=== PATIENT | male | born 1970 | race Asian ===

== ENCOUNTER 2023-03-27 14:30 | Outpatient (RCR) | payer MEDICAID, SELFPAY | END 2023-04-27 16:26 | disposition home or self-care (01) | PROVIDERS: PCP Family Medicine; Visit Provider Student in an Organized Health Care Education/Training Program | DX: S46.912A Strain of unspecified muscle, fascia and tendon at shoulder and upper arm level, left arm, initial encounter (principal); Z51.89 Encounter for other specified aftercare | CPT/HCPCS: 97110; 97162 ==

== ENCOUNTER 2023-10-24 10:17 | Emergency (ER) | payer OTHER, SELFPAY ==
[2023-10-24 10:28] VITALS: BP 169/77; PULSE 90; RESP 16; TEMP 36.6; O2SAT 96
--- NOTE | 2023-10-24 11:00 | XR_ITS ---
Patient: PRESTON MALONE Facility:?[facility] Patient ID:?[id number] Site Patient ID:?[id number]. Site :?1970 Study:?XRay-Chest 2 VIEW-10/24/2023 11:39:09 AM Ordering Physician:HONEY Final Report: Indication: Left chest pain Technique: Chest 2 views Comparison: None Findings/Impression: Cardiovascular and mediastinum: Heart size and vasculature are normal in caliber and appearance. Mediastinum is within normal limits. Lungs and pleural spaces: Lungs are clear. No sign of infiltrate or mass. No sign of pleural effusion. No pneumothorax. Bones and soft tissues: No significant findings. Dictated by Jeff Mittal MD @ 10/24/2023 12:16:11 PM Signed by:?Jeff Mittal MD @10/24/2023 12:16:11 PM (Electronic Signature)
--- NOTE | 2023-10-24 11:00 | CT_ITS ---
Patient: PRESTON MALONE Facility:?[facility] Patient ID:?[id number] Site Patient ID:?[id number]. Site :?1970 Study:?CT-Head WITHOUT-10/24/2023 11:37:44 AM Ordering Physician:HONEY Final Report: Indication: Headache. Technique: Noncontrast CT of the head with multiplanar reconstruction utilizing bone and soft tissue algorithms. Comparison: None available. Findings: No acute intracranial hemorrhage. The costa-white matter interface is preserved. The ventricles are normal in size. The calvarium is intact. Collapsed appearance of the left globe with a metallic foreign body within the intraconal space. The paranasal sinuses and mastoid air cells are predominantly clear. Impression: 1. No acute intracranial abnormality. 2. Collapsed appearance of the left globe with metallic foreign body in the intraconal space, potentially reflecting sequela of prior injury. Please note that all CT scans at this facility use dose modulation, iterative reconstruction, and/or weight-based dosing when appropriate to reduce radiation dose to as low as reasonably achievable. Dictated by Sim Laurent MD @ 10/24/2023 11:45:10 AM Signed by:?Sim Laurent MD @10/24/2023 11:45:10 AM (Electronic Signature)
[2023-10-24 11:24] LABS: Lactate* 1.3 mmol/L (0.5-1.9)
[2023-10-24 11:26] LABS: Basophils Absolute Auto 0.03 K/uL (0.00-0.30); Basophils Percent Auto 0.3 % (0.0-3.0); Eosinophils Absolute Auto 0.23 K/uL (0.00-0.50); Eosinophils Percent Auto 2.4 % (0.0-7.0); Hematocrit 48.5 % (37.0-53.0); Hemoglobin* 16.8 gm/dL (13.5-17.5); Immature Granulocytes Abs Auto 0.02 K/uL (0.00-0.30); Immature Granulocytes Pct Auto 0.2 %; Lymphocytes Absolute Auto 3.18 K/uL (0.90-2.90); Lymphocytes Percent Auto 32.7 % (20-44); Mean Corpuscular HGB Conc 35 gm/dL (32-36); Mean Corpuscular Hemoglobin 30 pg (26-34); Mean Corpuscular Volume 86 fL (80-100); Monocytes Percent Auto 7.9 % (0.0-11.0); Neutrophils Percent Auto 56.5 % (42.0-72.0); Platelet Count* 281 K/uL (140-440); RDW Coefficient of Variation % 12.5 % (11.5-15.5); Red Blood Count 5.65 m/uL (4.30-5.90); White Blood Count* 9.73 K/uL (4.50-11.00)
[2023-10-24 11:27] LABS: Slide Review Reflex No
[2023-10-24] MEDS: KETOROLAC 15 MG/ML inj IVP (11:32)
[2023-10-24] MEDS: METOCLOPRAMIDE HCL 5 MG/ML INJ 10 MG IVP (11:34)
[2023-10-24] MEDS: diphenhydrAMINE 50 MG/ML inj 12.5 MG IVP (11:35)
[2023-10-24] MEDS: 0.9 % SODIUM CHLORIDE 1000 ml 1,000 ML IV (11:39)
[2023-10-24 11:58] LABS: Chloride* 105 mmol/L (96-114); Potassium* 4.4 mmol/L (3.6-5.1); Sodium* 136 mmol/L (135-149); Troponin I* 0.03 ng/mL (0.01-0.04)
[2023-10-24 12:01] LABS: Anion Gap 6 mEq/L (7-15); Blood Urea Nitrogen* 12 mg/dL (7-30); Carbon Dioxide* 25 mmol/L (20-32); Creatinine* 0.7 mg/dL (0.5-1.5); Estimated Glomerular Filt Rate 110 ml/min; Glucose* 141 mg/dL (60-115)
[2023-10-24 12:02] LABS: Calcium* 9.4 mg/dL (8.4-10.6)
[2023-10-24 12:05] LABS: D Dimer Quantitative* 0.22 ug/ml (0.00-0.50)
--- NOTE | 2023-10-24 12:14 | ED_ITS ---
HPI - General Adult General Date Seen: 10/24/23 Chief complaint: Headache/Migraine Stated complaint: headache, left side abdominal pain Time Seen by Provider: 10/24/23 10:59 History of Present Illness HPI narrative: History is limited by language barrier and is interpreted using and Citizen Of [place]- [place] iPad based radio program director. The patient's son is bilingual and is at the bedside but does not interpret 53-year-old woman with a history of hypertension and dyslipidemia the [place] (sounds like primary care and [facility]. On blood pressure and cholesterol meds but does not know the names of the meds). He presents to the ER today for evaluation of left lateral chest/rib pain and headache. Both of these symptoms began yesterday morning and were present when he woke up. Sounds like the patient was normal 2 days ago. No recent injury. No recent fall. No recent respiratory illness or cough. No fever. When he woke up yesterday he was having some pain in this left lateral ribs. Does hurt to breathe. It does not radiate. No pain down to the flank or abdomen. No rash. It has been present continuously all day yesterday and is still present today. He says yesterday the pain was not as bad but he was only slightly dizzy. Today the pain is worse but he slightly less dizzy. He also notes a headache that is more on the left side than on the right. It has also been present continuously since yesterday. No fever. No stiff neck. The pain does not radiate down his neck. No other symptoms. No blurry vision. No nausea or vomiting. He did have 1 brief coughing spell this morning. No abdominal pain or back pain. No fever. He does note that he has been waking up with night sweats in the morning for quite some time. He also wakes up with dry mouth in the morning. In records through [email or web address] care link from his primary care provider at [facility] Past medical history include Hypertension Mixed hyperlipidemia GERD Colon polyp H pylori infection Pre diabetes Tobacco use Traumatic enucleation of left eye Current medications: Acetaminophen Atorvastatin 40 mg daily Famotidine 40 mg daily Losartan 100 mg daily Metoprolol XL 25 mg daily Omeprazole 40 mg daily Gabapentin 100 mg t.i.d. NV Naproxen p.r.n. MiraLax purulent He has a phone call to the [facility] phone triage line this morning. Looks like he called them because of his headache and dizziness Related Data Allergies Allergy/AdvReac Type Severity Reaction Status Date / Time No Known Drug Allergies Allergy Verified 10/24/23 10:40 PFSH PFS Social History Smoking Status: Never smoker How often do you have a drink containing alcohol: never AUDIT-C Alcohol total score: 0 Non-prescribed substance use: denies use service: No Exam Const: Vital Signs, click to edit/add: Vital Signs - 24 hr 10/24/23 10:28 10/24/23 12:30 Temperature 97.9 F Pulse Rate [Pulse Oximeter] 90 75 Respiratory Rate 16 Blood Pressure [Ri ght Upper Arm] 169/77 H 144/80 H Pulse Oximetry 96 99 Oxygen Delivery Me thod Room Air Room Air Course Vital Signs Vital signs: Initial Vital Signs Temperature 97.9 F 10/24/23 10:28 Temperature Source Temporal Artery Scan 10/24/23 10:28 Pulse Rate 90 10/24/23 10:28 Respiratory Rate 16 10/24/23 10:28 Blood Pressure 169/77 H 10/24/23 10:28 Blood Pressure Mean 107 H 10/24/23 10:28 Blood Pressure Position Sitting 10/24/23 10:28 Pulse Oximetry 96 10/24/23 10:28 Oxygen Delivery Method Room Air 10/24/23 10:28 Vital Signs Temperature 97.9 F 10/24/23 10:28 Pulse Rate 90 10/24/23 10:28 Respiratory Rate 16 10/24/23 10:28 Blood Pressure 169/77 H 10/24/23 10:28 Pulse Oximetry 96 10/24/23 10:28 Oxygen Delivery Method Room Air 10/24/23 10:28 Temperature 97.9 F 10/24/23 10:28 Pulse Rate 75 10/24/23 12:30 Respiratory Rate 16 10/24/23 10:28 Blood Pressure 144/80 H 10/24/23 12:30 Pulse Oximetry 99 10/24/23 12:30 Oxygen Delivery Method Room Air 10/24/23 12:30 Medications Administered Medications: Discontinued Medications Generic Name Dose Route Start Last Admin Trade Name Freq PRN Reason Stop Dose Admin Diphenhydramine HCl 12.5 mg 10/24/23 11:01 10/24/23 11:35 Diphenhydramine 50 Mg/Ml Inj IVP 10/24/23 11:02 12.5 mg ONCE ONE Administration Sodium Chloride 1,000 mls @ 1,000 mls/hr 10/24/23 11:01 10/24/23 12:45 0.9 % Sodium Chloride 1000 Ml IV 10/24/23 12:00 Infused .Q1H HEBERT Infusion Ketorolac Tromethamine 15 mg 10/24/23 11:01 10/24/23 11:32 Ketorolac 15 Mg/Ml Inj IVP 10/24/23 11:02 15 mg ONCE ONE Administration Metoclopramide HCl 10 mg 10/24/23 11:01 10/24/23 11:34 Metoclopramide Hcl 5 Mg/Ml Inj IVP 10/24/23 11:02 10 mg ONCE ONE Administration Medical Decision Making MDM Narrative Medical decision making narrative: 53-year-old [place] speaking gentleman presenting to the ER today for evaluation of left lateral rib pain (chest pain) as well as headache, as well as dizziness. Symptoms ongoing since yesterday morning when he woke up In terms of the chest painDifferential was broad. No evidence of palpitations, syncope or other cardiac dysrhythmia. EKG showing sinus rhythm. No ectopy. We considered possible ACS, however workup with EKG and troponin is negative. Given time since onset of symptoms, I do not think the patient needs to be admitted for further sets of enzymes. HEART score is 3-low risk EKG shows no evidence for pericarditis. Clinical presentation not suggestive of myocarditis. Chest x-ray shows no evidence for pneumonia, pneumothorax, pulmonary edema, pleural effusion, rib fracture, cardiomegaly. Mediastinum is normal on the x-ray. The patient has no ripping or tearing pain through to the back and has symmetric pulses on exam, no other acute neuro findings so I doubt aortic dissection. Aortic dissection score low risk/ D dimer normal. Risk of radiation and contrast exposure would outweigh the benefit of CT angiogram. We considered PE for this patient. Screening D-dimer is normal. No wheezing or bronchospasm to suggest COPD/asthma. No signs of chest wall cellulitis, shingles, injury. In terms of the headache: A broad differential diagnosis was considered including tension, migraine, analgesic rebound, occipital neuralgia, etc. Other less common but serious causes considered included meningitis, encephalitis, subarachnoid bleed, stroke, tumor, etc. The patient has no signs of serious headache etiologies at this point. Since the patient does not have a history of similar headaches in the past we did obtain CT imaging which is normal. Headache was not abrupt in onset to raise concern for subarachnoid hemorrhage. No associated neck stiffness or high fever to raise concern for meningitis. Blood pressure was mildly elevated but improved after treatment of his headache. Patients questions were answered and they feel improved after above interventions in ED. Supportive outpatient management is therefore indicated. Headache precautions given for home. With reasonable clinical confidence, I think the patient is safe for outpatient follow up. Discussed return precautions. Questions answered. Patient voices comfort with the plan .discharge instructions were reviewed with the patient and his son. Lab Data Labs: Lab Results 10/24/23 Range/Units 11:18 WBC 9.73 (4.50-11.00) K/uL RBC 5.65 (4.30-5.90) m/uL Hgb 16.8 (13.5-17.5) gm/dL Hct 48.5 (37.0-53.0) % MCV 86 (80-100) fL MCH 30 (26-34) pg MCHC 35 (32-36) gm/dL RDW Coeff of Evaristo 12.5 (11.5-15.5) % Plt Count 281 (140-440) K/uL Neut % (Auto) 56.5 (42.0-72.0) % Lymph % (Auto) 32.7 (20-44) % [place] % (Auto) 7.9 (0.0-11.0) % Eos % (Auto) 2.4 (0.0-7.0) % Baso % (Auto) 0.3 (0.0-3.0) % Neut # (Auto) 5.50 (1.7-7.0) K/uL Lymph # (Auto) 3.18 H (0.90-2.90) K/uL [place] # (Auto) 0.80 (0.00-0.90) K/UL Eos # (Auto) 0.23 (0.00-0.50) K/uL Baso # (Auto) 0.03 (0.00-0.30) K/uL Abs Immat Gran (auto) 0.02 (0.00-0.30) K/uL Imm/Tot Granulo (auto) 0.2 % D-Dimer Quant (PE/DVT) 0.22 (0.00-0.50) ug/ml Sodium 136 (135-149) mmol/L Potassium 4.4 (3.6-5.1) mmol/L Chloride 105 (96-114) mmol/L Carbon Dioxide 25 (20-32) mmol/L Anion Gap 6 L (7-15) mEq/L BUN 12 (7-30) mg/dL Creatinine 0.7 (0.5-1.5) mg/dL Estimated GFR 110 ml/min Glucose 141 H (60-115) mg/dL Lactate 1.3 (0.5-1.9) mmol/L Calcium 9.4 (8.4-10.6) mg/dL Troponin I 0.03 (0.01-0.04) ng/mL SARS-CoV-2 (PCR) Negative SARS-CoV-2 (Negative) Influenza Type A (PCR) Negative PCR FLU A (Negative) Influenza Type B (PCR) Negative PCR FLU B (Negative) RSV (PCR) Negative PCR RSV (Negative) Imaging Data CT scan - head: Attestation: I have reviewed the pertinent imaging results. Radiologist's impression: Impression: 1. No acute intracranial abnormality. 2. Collapsed appearance of the left globe with metallic foreign body in the intraconal space, potentially reflecting sequela of prior injury. Chest x-ray: Attestation: I have reviewed the pertinent imaging results. Radiologist's impression: Findings/Impression: Cardiovascular and mediastinum: Heart size and vasculature are normal in caliber and appearance. Mediastinum is within normal limits. Lungs and pleural spaces: Lungs are clear. No sign of infiltrate or mass. No sign of pleural effusion. No pneumothorax. Bones and soft tissues: No significant findings. ECG Data Interpretation: Normal sinus rhythm rate 79 NV 154 QRS axis normal axis. No pathologic Q-waves. ST segment/T wave: No ST segment elevation or depression. QTc: 428 Discharge Plan Discharge Clinical Impression: Headache, Chest pain Patient Disposition: Home, Self-Care Condition: Stable Instructions: Chest Pain (ED), Acute Headache (DC) Additional Instructions: As we discussed, come back to the ER right away if you have any worsening chest pain or headache or any other new concerning symptoms. Please follow-up with your doctor or come back to the ER within 2-3 days unless you are completely improved. Continue on your regular medications. Use the prescription pain killer ([place]) if needed. Be careful with this pain medication because it can cause drowsiness. Do not drive while taking the pain killer. Follow Up/Referrals: Eddie Underwood MD [Primary Care Provider] - Stand Alone Forms: [employer] Info Instructions
[2023-10-24 12:15] LABS: PCR FLU A Negative PCR FLU A (Negative); PCR FLU B Negative PCR FLU B (Negative); PCR RSV Negative PCR RSV (Negative); SARS PCR* Negative SARS-CoV-2 (Negative)
[2023-10-24 12:30] VITALS: BP 144/80; PULSE 75; O2SAT 99
== END 2023-10-24 13:19 | disposition home or self-care (01) ==
PROVIDERS: Emergency Provider Emergency Medicine; PCP Family Medicine
DX: R51.9 Headache, unspecified (principal); R07.9 Chest pain, unspecified
CPT/HCPCS: 36415; 70450; 71046; 80048; 83605; 84484; 85025; 85379; 87631; 93005; 96361; 96374; 96375; 99284; 99285; J1200; J1885; J2765; J7030